=== PATIENT | female | born 1985 | race African-American/Black ===

== ENCOUNTER 2017-03-20 15:31 | Inpatient (IN) ==
[2017-03-20] MEDS ORDERED: DINOPROSTONE VAG GEL 10 MG SYRINGE VAG ONE (16:52)
[2017-03-20 17:26] LABS: Basophils % 0.2 % (0.0-0.8); Eosinophils % 0.2 % (0.00-10.9); Hematocrit 26.4 VOL% (35.7-47.0); Hemoglobin 8.7 GM/DL (12.0-16.0); Immature Granulocytes % 0.2 %; Immature Granulocytes Absolute 0.01 #; Lymphocytes # 0.9 10*3/uL (1.4-4.0); Lymphocytes % 20.6 % (21.3-54.2); Mean Corpuscular Hemoglobin 28 PG (27-34); Mean Corpuscular Volume 83.8 FL (87-102); Mean Platelet Volume 10.8 FL (9.6-12.0); Monocytes # 0.4 10*3/uL (0.11-0.8); Monocytes % 8.1 % (1.7-12.7); Neutrophils # 3.1 10*3/uL (1.4-7.4); Neutrophils % 70.7 % (38.7-73.9); Platelet Count 283 T/CUMM (130-400); Red Blood Count 3.15 MC/CUMM (3.8-5.5); Red Cell Distribution Width 12.8 % (9.3-17.3); White Blood Count 4.3 T/CUMM (4-12)
[2017-03-20] MEDS: LACTATED RINGERS 1,000 ML IV SCH ×2 (18:27→20:31)
[2017-03-20] MEDS ORDERED: CITRIC ACID/SODIUM CITRATE 30 ML UDCUP PO ONE (20:13)
[2017-03-20] MEDS ORDERED: FAMOTIDINE 20 MG/2 ML VIAL IV ONE (20:13)
[2017-03-20] MEDS ORDERED: ePHEDrine 50 MG/ML AMP ONE (20:18)
[2017-03-20] MEDS: ONDANSETRON 4 MG/2 ML VIAL IV PRN (21:58)
[2017-03-20] MEDS: MEPERIDINE 50 MG/1 ML VIAL IV PRN (21:58)
[2017-03-20] MEDS: fentaNYL 2 MCG/ROPIV 0.2% EPID 150 ML EPIDURAL SCH (22:35)
[2017-03-21] MEDS ORDERED: OXYTOCIN/LR 20 UNIT/1,000 ML BAG IV SCH (03:00)
[2017-03-21] MEDS: MEPERIDINE 50 MG/1 ML VIAL IV PRN (04:55)
[2017-03-21] MEDS: ONDANSETRON 4 MG/2 ML VIAL IV PRN (04:55)
[2017-03-21] MEDS ORDERED: FAMOTIDINE 20 MG/2 ML VIAL IV ONE (08:53)
[2017-03-21] MEDS ORDERED: CITRIC ACID/SODIUM CITRATE 30 ML UDCUP PO ONE (08:53)
[2017-03-21] MEDS: fentaNYL 2 MCG/ROPIV 0.2% EPID 150 ML EPIDURAL SCH (09:33)
[2017-03-21] MEDS ORDERED: OXYTOCIN/LR 20 UNIT/1,000 ML BAG IV ONE (17:44)
[2017-03-21] MEDS ORDERED: WITCH HAZEL PADS 100/JAR TOP PRN (17:44)
[2017-03-21] MEDS ORDERED: ACETAMINOPHEN 325 MG TABLET PO PRN (17:44)
[2017-03-21] MEDS ORDERED: ONDANSETRON 4 MG/2 ML VIAL IV PRN (17:44)
[2017-03-21] MEDS ORDERED: MEASLES/MUMPS/RUBELLA VACCINE 0.5 ML VIAL SUBCUT ONE (17:44)
[2017-03-21] MEDS ORDERED: BISACODYL 10 MG SUPP RECTAL PRN (17:44)
[2017-03-21] MEDS ORDERED: oxyCODONE/ACETAMINOPHEN 5-325 MG TABLET PO PRN ×2 (17:44)
[2017-03-21] MEDS ORDERED: IBUPROFEN 800 MG TABLET PO PRN (17:44)
[2017-03-21] MEDS ORDERED: HYDROCORTISONE 2.5% RECTAL CREAM 30 GM TUBE TOP PRN (17:44)
[2017-03-21] MEDS ORDERED: DIPH/TET/ACEL PERT BOOSTER VACCINE 0.5 ML VIAL IM ONE (17:44)
[2017-03-21] MEDS ORDERED: BENZOCAINE 20%/MENTHOL 0.5% SPRAY 56 GM CAN TOP PRN (17:44)
[2017-03-21] MEDS ORDERED: RHO(D) IMMUNE GLOBULIN 300 MCG SYRINGE IM ONE (17:44)
[2017-03-21] MEDS ORDERED: LANOLIN 50% CREAM 0.3 OZ TUBE TOP PRN (17:44)
[2017-03-21] MEDS: DOCUSATE SODIUM 100 MG CAPSULE PO SCH (23:23)
[2017-03-22 06:10] LABS: Basophils % 0.1 % (0.0-0.8); Eosinophils % 0.1 % (0.00-10.9); Hemoglobin 7.4 GM/DL (12.0-16.0); Immature Granulocytes % 0.3 %; Immature Granulocytes Absolute 0.02 #; Lymphocytes # 1.6 10*3/uL (1.4-4.0); Lymphocytes % 20.5 % (21.3-54.2); Mean Corpuscular HGB Conc 33.6 GM/DL (32-36); Mean Corpuscular Hemoglobin 28 PG (27-34); Mean Corpuscular Volume 83.3 FL (87-102); Mean Platelet Volume 11.2 FL (9.6-12.0); Monocytes # 0.6 10*3/uL (0.11-0.8); Monocytes % 7.8 % (1.7-12.7); Neutrophils # 5.6 10*3/uL (1.4-7.4); Neutrophils % 71.2 % (38.7-73.9); Red Blood Count 2.64 MC/CUMM (3.8-5.5)
[2017-03-22 06:43] LABS: Platelet Count 214 T/CUMM (130-400); White Blood Count 7.8 T/CUMM (4-12)
[2017-03-22] MEDS: DOCUSATE SODIUM 100 MG CAPSULE PO SCH ×2 (09:34→20:37)
[2017-03-22] MEDS ORDERED: SODIUM CHLORIDE 0.9% 1,000 ML IV PRN (14:30)
[2017-03-22] MEDS: FERROUS SULFATE 325 MG TABLET PO SCH ×2 (16:37→20:37)
[2017-03-23 05:41] LABS: Hematocrit 26.8 VOL% (35.7-47.0)
[2017-03-23 08:12] LABS: Hematocrit 25.9 VOL% (35.7-47.0); Hemoglobin 8.7 GM/DL (12.0-16.0)
[2017-03-23 08:25] VITALS: BP 143/80
[2017-03-23] MEDS: FERROUS SULFATE 325 MG TABLET PO SCH (09:21)
[2017-03-23] MEDS: DOCUSATE SODIUM 100 MG CAPSULE PO SCH (09:21)
== END 2017-03-23 13:25 | disposition home or self-care (01) | DRG 775 ==
LOC: N.LDOUT 15:31 → N.LD 15:33 → N.OB 03-21 20:20
PROVIDERS: ADMIT Obstetrics & Gynecology; ATTEND Obstetrics & Gynecology

== ENCOUNTER 2021-07-05 06:29 | Inpatient (IN) ==
[2021-07-05] MEDS ORDERED: BUTORPHANOL 2 MG/ML VIAL IV PRN (07:18)
[2021-07-05] MEDS ORDERED: MEPERIDINE 50 MG/1 ML VIAL IM PRN (07:18)
[2021-07-05] MEDS ORDERED: ONDANSETRON 4 MG/2 ML VIAL IV PRN (07:18)
[2021-07-05] MEDS ORDERED: AMPICILLIN INJ 2,000 MG in SODIUM CHLORIDE 0.9% 100 ML IV ONE (08:13)
[2021-07-05 08:20] LABS: Basophils % 0.3 % (0.0-0.8); Eosinophils % 0.3 % (0.00-10.9); Hematocrit 27.5 VOL% (35.7-47.0); Immature Granulocytes % 0.3 %; Immature Granulocytes Absolute 0.01 #; Lymphocytes # 1.1 10*3/uL (1.4-4.0); Lymphocytes % 30.1 % (21.3-54.2); Mean Corpuscular HGB Conc 32.7 GM/DL (32-36); Mean Corpuscular Volume 86.5 FL (87-102); Mean Platelet Volume 10.9 FL (9.6-12.0); Monocytes % 10.6 % (1.7-12.7); Neutrophils % 58.4 % (38.7-73.9); Platelet Count 274 T/CUMM (130-400); Red Blood Count 3.18 MC/CUMM (3.8-5.5); Red Cell Distribution Width 12.2 % (9.3-17.3); White Blood Count 3.6 T/CUMM (4-12)
[2021-07-05] MEDS: LACTATED RINGERS 1,000 ML IV SCH ×2 (08:32→16:57)
[2021-07-05] MEDS: OXYTOCIN/LR 20 UNIT/1,000 ML BAG IV SCH (10:04)
[2021-07-05] MEDS: AMPICILLIN INJ 1,000 MG in SODIUM CHLORIDE 0.9% 100 ML IV SCH ×3 (12:37→19:53)
[2021-07-05] MEDS ORDERED: LABETALOL 100 MG TABLET PO ONE (13:00)
[2021-07-05 13:07] LABS: Albumin 2.5 G/DL (3.4-5.0); Bilirubin,Total 0.6 MG/DL (0.20-1.00); Calcium 9.1 MG/DL (8.5-10.1); Osmolality,Calculated 274.4 MOS/KG (273-304); Potassium 4.1 MMOL/L (3.5-5.1); Total Protein 7.2 G/DL (6.4-8.2)
[2021-07-05] MEDS: ACETAMINOPHEN 500 MG TABLET PO PRN (19:51)
[2021-07-05] MEDS ORDERED: LABETALOL 100 MG TABLET PO SCH (21:00)
[2021-07-05] MEDS ORDERED: PROMETHAZINE 25 MG/1 ML VIAL IM PRN (21:33)
[2021-07-05] MEDS ORDERED: NALOXONE 0.4 MG/ML VIAL IV PRN (22:41)
[2021-07-05] MEDS ORDERED: diphenhydrAMINE 50 MG/1 ML VIAL IV PRN ×2 (22:41)
[2021-07-05] MEDS ORDERED: ePHEDrine 50 MG/ML VIAL IV PRN (22:41)
[2021-07-05] MEDS ORDERED: hydrOXYzine HCL 25 MG/1 ML VIAL IM PRN (22:41)
[2021-07-05] MEDS ORDERED: CITRIC ACID/SODIUM CITRATE 30 ML UDCUP PO PRN (22:43)
[2021-07-05] MEDS ORDERED: FAMOTIDINE 20 MG/2 ML VIAL IV PRN (22:43)
[2021-07-06] MEDS: AMPICILLIN INJ 1,000 MG in SODIUM CHLORIDE 0.9% 100 ML IV SCH ×4 (00:16→11:58)
[2021-07-06] MEDS: fentaNYL 2 MCG/ROPIV 0.2% EPID 100 ML EPIDURAL PRN ×2 (01:26→08:53)
[2021-07-06] MEDS: LACTATED RINGERS 1,000 ML IV SCH (04:00)
[2021-07-06] MEDS: OXYTOCIN/LR 20 UNIT/1,000 ML BAG IV SCH ×2 (04:11→15:27)
[2021-07-06 04:31] LABS: Bacteria,Urine Occasional /HPF (Few); Mucus,Urine Occasional /LPF (Occasional); RBC,Urine 1 /HPF (0-4); Urine Appearance Clear (Clear); Urine Color Yellow (Yellow)
[2021-07-06 04:32] LABS: Bilirubin,Urine Negative (Negative); Blood, Urine Negative (Negative); Glucose,Urine (UA) Negative (Negative); Ketones,Urine 40 mg/dL (Negative); Nitrite,Urine Negative (Negative); Protein,Urine Negative (Negative); Urine Specific Gravity 1.025 (1.001-1.035); Urine Urobilinogen 0.2 eU/dL (<2.0); Urine pH 6.5 (4.5-8.0)
[2021-07-06 04:38] LABS: Protein/Creatinine Ratio,Urine 0.2 RATIO
[2021-07-06] MEDS ORDERED: miSOPROStoL 200 MCG TABLET ONE (11:53)
[2021-07-06] MEDS ORDERED: OXYTOCIN/LR 20 UNIT/1,000 ML BAG IV ONE (11:53)
[2021-07-06] MEDS ORDERED: TRANEXAMIC ACID 1,000 MG/10 ML VIAL ONE (11:53)
[2021-07-06] MEDS ORDERED: SODIUM CHLORIDE 0.9% 0 ML IV ONE (11:53)
[2021-07-06] MEDS ORDERED: CARBOPROST TROMETHAMINE 250 MCG/ML AMP IM ONE (11:54)
[2021-07-06] MEDS ORDERED: METHYLERGONOVINE 0.2 MG/1 ML AMP ONE (11:54)
[2021-07-06 13:04] LABS: Cord Venous Blood HCO3 19.2 MMOL/L; Cord Venous Blood PCO2 47.9 MMHG; Cord Venous Blood PO2 18.4
[2021-07-06] MEDS ORDERED: WITCH HAZEL PADS 100/JAR TOP PRN (13:22)
[2021-07-06] MEDS ORDERED: DIPH/TET/ACEL PERT BOOSTER VACCINE 0.5 ML VIAL IM ONE (13:22)
[2021-07-06] MEDS ORDERED: HYDROCORTISONE 2.5% RECTAL CREAM 30 GM TUBE TOP PRN (13:22)
[2021-07-06] MEDS ORDERED: LANOLIN 50% CREAM 0.3 OZ TUBE TOP PRN (13:22)
[2021-07-06] MEDS ORDERED: MEASLES/MUMPS/RUBELLA VACCINE 0.5 ML VIAL SUBCUT ONE (13:22)
[2021-07-06] MEDS ORDERED: BENZOCAINE 20%/MENTHOL 0.5% SPRAY 56 GM CAN TOP PRN (13:22)
[2021-07-06] MEDS ORDERED: ACETAMINOPHEN 325 MG TABLET PO PRN (13:22)
[2021-07-06] MEDS ORDERED: BISACODYL 10 MG SUPP RECTAL PRN (13:22)
[2021-07-06] MEDS ORDERED: ACETAMINOPHEN/CODEINE 300-30 MG TABLET PO PRN (13:27)
[2021-07-06] MEDS: ACETAMINOPHEN 500 MG TABLET PO PRN (13:51)
[2021-07-06] MEDS: LABETALOL 100 MG TABLET PO SCH (21:01)
[2021-07-06] MEDS: DOCUSATE SODIUM 100 MG CAPSULE PO SCH (21:01)
[2021-07-06] MEDS: IBUPROFEN 800 MG TABLET PO PRN (21:01)
[2021-07-07] MEDS: IBUPROFEN 800 MG TABLET PO PRN ×2 (05:17→22:26)
[2021-07-07 05:28] LABS: Basophils % 0.1 % (0.0-0.8); Eosinophils % 0.1 % (0.00-10.9); Hematocrit 26.9 VOL% (35.7-47.0); Hemoglobin 8.8 GM/DL (12.0-16.0); Immature Granulocytes % 0.5 %; Immature Granulocytes Absolute 0.04 #; Lymphocytes # 1.3 10*3/uL (1.4-4.0); Lymphocytes % 15.1 % (21.3-54.2); Mean Corpuscular HGB Conc 32.7 GM/DL (32-36); Mean Corpuscular Volume 86.5 FL (87-102); Mean Platelet Volume 11.2 FL (9.6-12.0); Neutrophils % 76.2 % (38.7-73.9); Platelet Count 249 T/CUMM (130-400); Red Blood Count 3.11 MC/CUMM (3.8-5.5); Red Cell Distribution Width 12.7 % (9.3-17.3); White Blood Count 8.7 T/CUMM (4-12)
[2021-07-07] MEDS: LABETALOL 100 MG TABLET PO SCH ×2 (08:50→18:12)
[2021-07-07] MEDS: FERROUS SULFATE 325 MG TABLET PO SCH (08:50)
[2021-07-07] MEDS: DOCUSATE SODIUM 100 MG CAPSULE PO SCH ×2 (08:50→20:43)
[2021-07-07] MEDS: ACETAMINOPHEN/CODEINE 300-30 MG TABLET PO PRN ×2 (17:02→22:25)
[2021-07-08] MEDS: LABETALOL 100 MG TABLET PO SCH (01:04)
[2021-07-08] MEDS ORDERED: FUROSEMIDE 20 MG TABLET PO ONE (07:30)
[2021-07-08] MEDS: FERROUS SULFATE 325 MG TABLET PO SCH (07:54)
[2021-07-08] MEDS: DOCUSATE SODIUM 100 MG CAPSULE PO SCH (07:54)
[2021-07-08] MEDS: IBUPROFEN 800 MG TABLET PO PRN (07:56)
[2021-07-08] MEDS: ACETAMINOPHEN/CODEINE 300-30 MG TABLET PO PRN (07:57)
[2021-07-08] MEDS ORDERED: LABETALOL 200 MG TABLET PO SCH (09:00)
[2021-07-08 10:20] VITALS: BP 155/89
== END 2021-07-08 13:30 | disposition home or self-care (01) | DRG 807 ==
LOC: N.LDOUT 06:29 → N.LD 06:39 → N.OB 07-06 15:40
PROVIDERS: ADMIT Obstetrics & Gynecology; ATTEND Obstetrics & Gynecology

== ENCOUNTER 2021-07-09 16:32 | Observation (INO) ==
[2021-07-09] MEDS ORDERED: LABETALOL 100 MG/20 ML VIAL IV STA ×2 (17:11→21:54)
[2021-07-09 17:41] LABS: RBC,Urine 129 /HPF (0-4); Squamous Epithelial Cell,Urine Occasional /HPF (0-10)
[2021-07-09 17:42] LABS: Urine Appearance Clear (Clear); Urine Color Yellow (Yellow); Urine pH 7.5 (4.5-8.0)
[2021-07-09 17:43] LABS: Bilirubin,Urine Negative (Negative); Blood, Urine Large mg/dL (Negative); Glucose,Urine (UA) Negative (Negative); Ketones,Urine Negative (Negative); Nitrite,Urine Negative (Negative); Protein,Urine Negative (Negative); Urine Urobilinogen 0.2 eU/dL (<2.0)
[2021-07-09 17:45] LABS: Basophils % 0.4 % (0.0-0.8); Eosinophils % 0.8 % (0.00-10.9); Hematocrit 30.4 VOL% (35.7-47.0); Immature Granulocytes % 0.6 %; Immature Granulocytes Absolute 0.03 #; Lymphocytes # 1.3 10*3/uL (1.4-4.0); Lymphocytes % 24.5 % (21.3-54.2); Mean Corpuscular HGB Conc 32.9 GM/DL (32-36); Mean Corpuscular Volume 87.1 FL (87-102); Mean Platelet Volume 10.8 FL (9.6-12.0); Monocytes % 8.7 % (1.7-12.7); Platelet Count 284 T/CUMM (130-400); Red Blood Count 3.49 MC/CUMM (3.8-5.5); White Blood Count 5.2 T/CUMM (4-12)
[2021-07-09 17:55] LABS: Barbiturates Screen,Urine Negative (Negative); Benzodiazepines Screen,Urine Negative (Negative); Cannabinoid Screen,Urine Negative (Negative); Opiate Screen,Urine Negative (Negative); Phencyclidine Screen,Urine Negative (Negative)
[2021-07-09 18:05] LABS: Albumin 2.8 G/DL (3.4-5.0); Bilirubin,Total 0.5 MG/DL (0.20-1.00); Calcium 9.3 MG/DL (8.5-10.1); Total Protein 7.4 G/DL (6.4-8.2)
[2021-07-09] MEDS ORDERED: DEXTROSE 50% 25 GM/50 ML VIAL IV STA (18:16)
[2021-07-09] MEDS ORDERED: hydrALAZINE 20 MG/1 ML VIAL IV STA (18:18)
[2021-07-09] MEDS ORDERED: DEXTROSE 50% 25 GM/50 ML SYRINGE IV STA (18:19)
[2021-07-09] MEDS ORDERED: FUROSEMIDE 40 MG/4 ML VIAL IV STA (18:50)
[2021-07-09] MEDS ORDERED: MORPHINE 2 MG/1 ML SYRINGE IV PRN (20:39)
[2021-07-09] MEDS ORDERED: IBUPROFEN 800 MG TABLET PO PRN (20:39)
[2021-07-09] MEDS ORDERED: BISACODYL 10 MG SUPP RECTAL PRN (20:39)
[2021-07-09] MEDS ORDERED: ONDANSETRON 4 MG/2 ML VIAL IV PRN (20:39)
[2021-07-09] MEDS ORDERED: MAGNESIUM SULF RIDER 4 GM/100 ML PREMIX IV ONE (20:39)
[2021-07-09] MEDS ORDERED: hydrALAZINE 20 MG/1 ML VIAL IV PRN (20:39)
[2021-07-09] MEDS ORDERED: ACETAMINOPHEN 325 MG TABLET PO PRN (20:39)
[2021-07-09] MEDS ORDERED: MAGNESIUM HYDROXIDE SUSP 30 ML UDCUP PO PRN (20:39)
[2021-07-09] MEDS ORDERED: MAGNESIUM SULF RIDER 2 GM/50 ML PREMIX IV ONE (21:00)
[2021-07-09] MEDS: DOCUSATE SODIUM 100 MG CAPSULE PO SCH (21:45)
[2021-07-09] MEDS: ENOXAPARIN 40 MG/0.4 ML SYRINGE SUBCUT SCH (21:47)
[2021-07-09] MEDS: SODIUM CHLORIDE 0.9% 1,000 ML IV SCH (21:50)
[2021-07-10 02:57] LABS: Basophils % 0.4 % (0.0-0.8); Eosinophils % 0.4 % (0.00-10.9); Hematocrit 29.8 VOL% (35.7-47.0); Hemoglobin 9.7 GM/DL (12.0-16.0); Immature Granulocytes % 0.6 %; Immature Granulocytes Absolute 0.03 #; Lymphocytes # 0.9 10*3/uL (1.4-4.0); Lymphocytes % 16.7 % (21.3-54.2); Mean Corpuscular HGB Conc 32.6 GM/DL (32-36); Mean Corpuscular Volume 85.6 FL (87-102); Mean Platelet Volume 10.3 FL (9.6-12.0); Monocytes % 7.2 % (1.7-12.7); Neutrophils % 74.7 % (38.7-73.9); Platelet Count 310 T/CUMM (130-400); Red Blood Count 3.48 MC/CUMM (3.8-5.5); Red Cell Distribution Width 12.9 % (9.3-17.3); White Blood Count 5.4 T/CUMM (4-12)
[2021-07-10 03:08] LABS: INR 0.9; PT Patient Result 10.3 SECS (10.5-12.0)
[2021-07-10 03:20] LABS: Albumin 2.7 G/DL (3.4-5.0); Bilirubin,Total 0.8 MG/DL (0.20-1.00); Calcium 8.9 MG/DL (8.5-10.1); Osmolality,Calculated 275.4 MOS/KG (273-304); Potassium 3.4 MMOL/L (3.5-5.1); Total Protein 7.5 G/DL (6.4-8.2)
[2021-07-10] MEDS: IBUPROFEN 800 MG TABLET PO PRN ×2 (07:38→20:09)
[2021-07-10] MEDS ORDERED: FUROSEMIDE 40 MG/4 ML VIAL IV SCH (08:00)
[2021-07-10] MEDS: LABETALOL 200 MG TABLET PO SCH ×2 (09:09→22:00)
[2021-07-10] MEDS: POTASSIUM CHLORIDE 20 MEQ TABLET PO SCH (09:09)
[2021-07-10] MEDS: DOCUSATE SODIUM 100 MG CAPSULE PO SCH ×2 (09:09→21:00)
[2021-07-10] MEDS: FUROSEMIDE 20 MG TABLET PO SCH (09:09)
[2021-07-10] MEDS ORDERED: ACETAMINOPHEN/CODEINE 300-30 MG TABLET PO PRN (10:38)
[2021-07-10] MEDS: ACETAMINOPHEN/CODEINE 300-30 MG TABLET PO PRN (12:39)
[2021-07-10] MEDS: SODIUM CHLORIDE 0.9% 1,000 ML IV SCH (16:24)
[2021-07-10] MEDS: ENOXAPARIN 40 MG/0.4 ML SYRINGE SUBCUT SCH (22:00)
[2021-07-11] MEDS: ACETAMINOPHEN/CODEINE 300-30 MG TABLET PO PRN (03:45)
[2021-07-11] MEDS: IBUPROFEN 800 MG TABLET PO PRN (07:10)
[2021-07-11 07:25] VITALS: BP 138/86
[2021-07-11 09:02] LABS: Albumin 2.7 G/DL (3.4-5.0); Bilirubin,Total 0.5 MG/DL (0.20-1.00); Calcium 9.1 MG/DL (8.5-10.1); Osmolality,Calculated 274.5 MOS/KG (273-304); Potassium 3.8 MMOL/L (3.5-5.1)
[2021-07-11] MEDS: POTASSIUM CHLORIDE 20 MEQ TABLET PO SCH (09:37)
[2021-07-11] MEDS: FUROSEMIDE 20 MG TABLET PO SCH (09:37)
[2021-07-11] MEDS: LABETALOL 200 MG TABLET PO SCH (09:37)
[2021-07-11] MEDS: DOCUSATE SODIUM 100 MG CAPSULE PO SCH (09:38)
== END 2021-07-11 10:45 | disposition home or self-care (01) ==
LOC: N.ED 16:32 → N.EDINP 16:32 → N.OB 23:06
PROVIDERS: ADMIT Obstetrics & Gynecology; ATTEND Obstetrics & Gynecology